=== PATIENT | female | born 1990 | race Caucasian/White ===

== ENCOUNTER 2022-06-19 14:20 | Inpatient (IN) ==
[2022-06-19] MEDS ORDERED: Buffered Lidocaine 1% SYRIN 1 ml INTRADERM ONE (17:16)
[2022-06-19] MEDS ORDERED: Lactated Ringers 1000 ml BAG 1,000 ML IV ONE ×2 (17:16→17:20)
[2022-06-19] MEDS ORDERED: Penicillin G Potassium IV 5,000,000 UNITS in NS 0.9% 100 ml BAG 100 ML IVPB ONE (17:16)
[2022-06-19] MEDS ORDERED: Penicillin G Potassium IV 3,000,000 UNITS in NS 0.9% 100 ml BAG 100 ML IVPB SCH ×2 (18:00→22:00)
[2022-06-19 18:19] LABS: Urine Benzodiazepine Screen None Detected (None Detect); Urine Cannabinoids Screen None Detected (None Detect); Urine Opiates Screen None Detected (None Detect)
[2022-06-19 18:49] LABS: ABS Eosinophils 0.2 10^3/ul (0-0.6); ABS Lymphocytes 1.3 10^3/ul (1.0-4.8); ABS Monocytes 0.6 10^3/ul (0-0.8); ABS Neutrophils 7.3 10^3/ul (1.5-7.7); Eosinophil % 2.1 %; Hematocrit 32 % (35-47); Hemoglobin 10.6 g/dL (12.0-16.0); Lymphocyte % 13.9 %; Mean Corpuscular HGB Conc 33 g/dL (31-36); Mean Corpuscular Hemoglobin 28 pg (27-31); Mean Corpuscular Volume 85 fL (80-97); Mean Platelet Volume 9.1 fL (7.4-10.4); Nucleated Red Blood Cells % 0.1; Platelet Count 227 10^3/uL (150-450); Red Cell Distribution Width 20 % (10-15); White Blood Count 9.4 10^3/uL (3.5-10.8)
[2022-06-19] MEDS: Penicillin G Potassium IV 3,000,000 UNITS in NS 0.9% 100 ml BAG 100 ML IVPB SCH (23:44)
[2022-06-20] MEDS: Penicillin G Potassium IV 3,000,000 UNITS in NS 0.9% 100 ml BAG 100 ML IVPB SCH ×4 (03:55→16:59)
[2022-06-20] MEDS ORDERED: Oxytocin in LR 20,000 MILLI.UNIT/1,000 ML BAG IV SCH ×2 (08:00→16:45)
[2022-06-20] MEDS: Lactated Ringers 1000 ml BAG 1,000 ML IV SCH ×2 (09:31→15:52)
[2022-06-20] MEDS ORDERED: Lidocaine 1% w EPI 1:200,000 SDV 30 ML VIAL ONE (12:43)
[2022-06-20] MEDS ORDERED: OBEPIDURAL (200 ML) 200 ML EPIDURAL ONE (12:45)
[2022-06-20 15:03] LABS: Urine Appearance Clear; Urine Bilirubin Negative (Negative); Urine Blood Negative (Negative); Urine Color Yellow; Urine Glucose Negative (Negative); Urine Ketones 3+ (80mg/dL) (Negative); Urine Nitrite Negative (Negative); Urine Protein Negative (Negative); Urine Specific Gravity 1.015 (1.005-1.030); Urine Urobilinogen 0.2 (Negative) (Negative)
[2022-06-20] MEDS ORDERED: Dibucaine 1% OINT 28.35 GM TUBE PR PRN (16:44)
[2022-06-20] MEDS ORDERED: Glycerin ADULT 2.4 gm SUPP PR PRN (16:44)
[2022-06-20] MEDS ORDERED: Witch Hazel PAD JAR TOPICAL PRN (16:44)
[2022-06-20] MEDS ORDERED: RHO D Immune Globulin (HUMAN) 300 MCG = 1,500 I.U. INJ IM ONE (16:46)
[2022-06-20] MEDS ORDERED: Lactated Ringers 1000 ml BAG 1,000 ML IV SCH (17:00)
[2022-06-20] MEDS ORDERED: Lidocaine 1% VIAL 10 MG/ML VIAL ONE (17:11)
[2022-06-21 06:35] LABS: ABS Eosinophils 0.3 10^3/ul (0-0.6); ABS Lymphocytes 1.3 10^3/ul (1.0-4.8); ABS Monocytes 0.8 10^3/ul (0-0.8); ABS Neutrophils 7.5 10^3/ul (1.5-7.7); Eosinophil % 2.9 %; Hematocrit 30 % (35-47); Hemoglobin 10.2 g/dL (12.0-16.0); Lymphocyte % 13.3 %; Mean Corpuscular HGB Conc 34 g/dL (31-36); Mean Corpuscular Hemoglobin 29 pg (27-31); Mean Corpuscular Volume 86 fL (80-97); Mean Platelet Volume 8.9 fL (7.4-10.4); Platelet Count 189 10^3/uL (150-450); Red Blood Count 3.54 10^6 /uL (3.70-4.87); Red Cell Distribution Width 20 % (10-15)
[2022-06-22 08:05] VITALS: BP 100/62
== END 2022-06-22 13:51 | disposition home or self-care (01) | DRG 807 ==
LOC: MCHOBOUT 14:20 → MCHOB 17:20
PROVIDERS: ADMIT Obstetrics & Gynecology; ATTEND Obstetrics & Gynecology